=== PATIENT | female | born 1965 | race Caucasian/White ===

== ENCOUNTER 2016-09-05 20:59 | Emergency (ER) | payer BC ==
[2016-09-05 20:43] LABS: BASOPHILS 0.4 %; BASOPHILS ABSOLUTE 0.03 10/3/uL (0.0-0.16); EOSINOPHILS 1.5 %; HEMATOCRIT 40.9 % (36.0-48.0); HEMOGLOBIN 13.8 g/dL (12.0-16.0); LYMPHOCYTES 35.7 %; LYMPHOCYTES ABSOLUTE 2.44 10/3/uL (0.67-4.30); MEAN CORPUS HGB CONC 33.7 g/dL (32.0-36.0); MEAN CORPUSCULAR HEMOGLOB 27.3 pg (26.0-34.0); MEAN PLATELET VOLUME 10.7 fL (9.2-13.0); MONOCYTES 8.5 %; MONOCYTES ABSOLUTE 0.58 10/3/uL (0.21-1.20); NEUTROPHILS 53.9 %; NEUTROPHILS ABSOLUTE 3.69 10/3/uL (2.02-8.40); PLATELET COUNT 191 10/3/uL (150-400); RBC DISTRIBUTION WIDTH 13.4 % (12.0-16.0); RED CELL COUNT 5.05 10/6/uL (4.0-5.6); WHITE BLOOD CELLS 6.8 10/3/uL (4.5-10.5)
[2016-09-05 20:44] LABS: MANUAL DIFF NO %
[2016-09-05 20:50] LABS: PARTIAL THROMBO TIME 25.8 SEC (22.5-37.2); PROTIME (NOT ORD) 13.4 SEC (12.0-14.5)
[2016-09-05 20:59] LABS: BUN (BLOOD UREA NITROGEN) 10 MG/DL (6-23); CHEST PAIN PROFILE TAT 0 Hrs 20 Mins; CHLORIDE, SERUM 106 MMOL/L (96-112); CO2 (CARBON DIOXIDE) 31 MMOL/L (24-34); CREATININE 0.74 MG/DL (0.55-1.02); GFR AFRICAN AMERICAN 109 ML/MIN (>=60); GFR NON AFRICAN AMERICAN 94 ML/MIN (>=60); GLUCOSE, SERUM 77 MG/DL (60-99); SODIUM, SERUM 142 MMOL/L (135-148); TROPONIN I <0.02 NG/ML (<0.05)
[~2016-09-05 20:59] MED LIST: AMB10 PO; AMB5 PO; ATEN25 PO; BYSTOLIC2.5 MG PO; BYSTOLIC5 MG PO; CALTRAT600 PO; FOLIC ACID800 MCG PO; GLUCOPHXR PO; HARD NAILS SL; HYCET ELIXIR; LORTAB 5 PO; MAGONATE PO; MULTIVIT/MIN PO; MULTIVITAMIN PO; NORCO1 TA1 PO; OS500+D PO; PEPCID COMPLETE; PHENERGAN; REFRESH OPH; TOBRAMYCIN0.3 % OPH; ULTRAM50 PO; VITAMIN B GUMMIES PO; VITAMIN B-121000 MC1 SL; VITAMIN C GUMMIES PO; VITAMIN C1000 MG PO; VITAMIN D1000 UNI1 PO; VITAMIN D3 GUMMIES PO; VITC500 PO; X5 PO; [UNRECOGNIZED DRUG - OTHER] PO
== END 2016-09-05 23:01 | disposition home or self-care (01) ==
LOC: ER 20:59
PROVIDERS: Nurse Practitioner Acute Care
DX: R55 Syncope and collapse (principal); M54.2 Cervicalgia; R51 Headache; I10 Essential (primary) hypertension; J45.909 Unspecified asthma, uncomplicated; K21.9 Gastro-esophageal reflux disease without esophagitis; F41.9 Anxiety disorder, unspecified; E11.9 Type 2 diabetes mellitus without complications; Z88.1 Allergy status to other antibiotic agents; Z88.8 Allergy status to other drugs, medicaments and biological substances; Z79.899 Other long term (current) drug therapy
CPT/HCPCS: 70450; 71010; 72125; 80048; 82962; 83735; 84484; 85025; 85610; 85730; 93005; 96374; 96375; 99285; J1885

== ENCOUNTER 2016-12-22 14:43 | Inpatient (IN) | payer BC ==
--- NOTE | ~2016-12-22 | HP ---
History And Physical [place] [address] [facility] [place]. [address] NAME: LIBIA STACY : 63 STATUS : ADM IN [facility]#: [id number] AGE: 51 ADM/REG DATE : 12/22/16 MR#: [id number] REPORT SERV DATE: 12/23/16 DICTATED BY: LAURA MEDINA DATE: 12/22/16 REPORT STATUS : Draft TRANSCRIBED BY: MODL DATE: 12/22/16 DATE OF ADMISSION: 12/22/2016 Primary care doctor is Dr. Flaherty, the patient apparently saw nurse practitioner today. REASON FOR ADMISSION: Right mastoiditis. HISTORY OF PRESENT ILLNESS: This is a 50-year-old female. She suffers from obesity, apparently was morbidly obese at one time, then she got a laparoscopic Avtar-en-Y gastric bypass per Dr. Baker in 2014 for which much of her hypertension, diabetes, and hyperlipidemia improved as well as her GERD. She has a known history as well of syncope possibly related to tachyarrhythmia, history of KEMAR on CPAP, generalized anxiety disorder, known surgical history of craniotomy due to Chiari malformation with subsequent C1- C7 laminectomy, recent C6-7 fusion about a month or two ago, surgical history of microdiskectomy L4-L5, right carpal tunnel release, open cholecystectomy. The patient has had a significant amount of stress recently with her daughter who apparently works at [employer] [facility] [employer] as a monitor and storage bin tender in the emergency department succumbed to septic shock with shock liver with a pneumococcal pneumonia, is in the ICU in [place] apparently at [facility]. The patient states she has had a lot of stress as a result, then back on Sunday she started having right ear tragal pain. She went to the emergency department two days ago in [facility] where she had been diagnosed with right otitis media in the emergency department. There was no blood work done apparently at that time. As a result, the patient had a Rocephin intramuscular injection and amoxicillin with morphine and Percocet with improvement in pain but then today the fullness and numbness worsened. She went to see Dr. Flaherty and saw the nurse practitioner. Thankfully, a CT internal auditory canal was done that showed a right mastoid effusion about 50% occupation with fluid and consistent with likely right mastoiditis. Radiologist called nurse practitioner, who then called me. The patient states she has had decreased hearing loss. No fevers, chills, night sweats in the last two days nor nausea vomiting, diarrhea, chest pain, chest pressure, or shortness of breath. The patient is anxious. PAST MEDICAL HISTORY: See above. PAST SURGICAL HISTORY: See above. ALLERGIES: DRUG INTOLERANCE TO KEFLEX WITH INTRACTABLE VOMITING. FAMILY HISTORY: Hypertension in at least one parent. SOCIAL HISTORY: Does not drink, do drugs, or smoke. HOME MEDICATIONS: See MAR. We will continue what is relevant. I do not have MAR in front of me. Apparently, the patient takes Ambien 5, Bystolic 2.5 at bedtime and tramadol p.r.n. History And Physical [address] [address] NAME: LIBIA STACY : 63 STATUS : ADM IN PAT#: [id number] AGE: 51 ADM/REG DATE : 12/22/16 MR#: [id number] REPORT SERV DATE: 12/23/16 DICTATED BY: LAURA MEDINA DATE: 12/22/16 REPORT STATUS : Draft TRANSCRIBED BY: MARIA TERESA DATE: 12/22/16 REVIEW OF SYSTEMS: Done, see HPI. Otherwise, negative, 10-point review done. The patient denies any new neck stiffness or headache. OBJECTIVE: VITAL SIGNS: Vitals are pending, will be called if they are unstable. GENERAL: Guarded. HEENT: PERRLA. Also I did in the right, she had no tragal pain to palpation. She did have some mild erythema in the tympanic membrane on the right. Oropharynx, she had some capillary dilation in the posterior pharynx, pharyngeal wall that I could visualize. CARDIOVASCULAR: Regular rate and rhythm. No murmur. No carotid bruits. RESPIRATORY: Clear to auscultation bilaterally. No wheezes. No crackles. ABDOMEN: Nontender, nondistended. Positive bowel sounds. EXTREMITIES: No edema. SKIN: No ecchymosis. NEURO: She is GCS 15. A and O 4 out of 4. She has decreased hearing in the right ear to my finger rub and snapping of finger right compared to left. This is new. PSYCH: Anxious. LABS: These are all going to be pending. CT, see above. I am going to get an MRI to rule out for any intracranial abscess or communication to dural space. ASSESSMENT AND PLAN: 1. Right mastoiditis, need to rule out MRSA and Pseudomonas as these are common causes with necrosis. 2. History of gastric bypass with improved hypertension, diabetes, hyperlipidemia improvement. 3. Recent history of sore throat after unclear facial tooth bridge two weeks ago. 4. Decreased right hearing compared to the left. PLAN: We will go ahead and admit this patient. Panculture, IV vanc, IV Levaquin cover Pseudomonas, cover MRSA. We will need Ear Nose and Throat evaluation as patient may have a cholesteatoma which may need resection. We will get an MRI to rule out any other soft tissue involvement including the cholesteatoma. We will defer to ENT if they would like to pursue any surgery. In the interim, we will make n.p.o. except medications and ice as an ice chips D5 LR. We will hold off on her antihypertensives until I have her current vitals. We will just place on p.r.n. hydralazine. I would also like to go ahead and get records from her [place] ER visit where apparently she had outpatient treatment failure to amoxicillin and intramuscular Rocephin. Cover her glycemic needs with Accu-Chek. She was formerly a diabetic before her bypass. See rest of my orders. All questions were answered. It took well over 60 minutes to do. Reference [employer] and [employer]. WST/MODL History And Physical [address] [address] NAME: LIBIA STACY : 63 STATUS : ADM IN [facility]#: [id number] AGE: 51 ADM/REG DATE : 12/22/16 MR#: [id number] REPORT SERV DATE: 12/23/16 DICTATED BY: LAURA MEDINA DATE: 12/22/16 REPORT STATUS : Draft TRANSCRIBED BY: MODL DATE: 12/22/16 Laura Medina DO / [id number] CC: DO Maninder Aleman MD
--- NOTE | ~2016-12-22 | DS ---
Discharge Summary [facility] [address] [place]. [address] NAME: LIBIA STACY : 63 STATUS : DIS IN PAT#: [id number] AGE: 51 ADM/REG DATE : 12/22/16 MR#: [id number] REPORT SERV DATE: 12/24/16 DICTATED BY: LAURA MEDINA DATE: 12/23/16 REPORT STATUS : Draft TRANSCRIBED BY: MODL DATE: 12/23/16 ADMISSION DATE: 12/22/2016 DISCHARGE DATE: 12/23/2016 HOSPITAL COURSE: A 51-year-old female, who suffers from obesity, was morbidly obese, one time required laparoscopic Avtar-en-Y gastric bypass by Dr. Junior 2014 from which much of her hypertension, diabetes, hyperlipidemia improved as well as her GERD, known history of syncope, possibly tachyarrhythmia, history of KEMAR on CPAP in the past, MARTY, surgical history of craniotomy due to Chiari malformations subsequent C1 and C7 laminectomy, recent C6-C7 fusion month or two ago, surgical history of microdiskectomy L4-L5, right carpal tunnel release, open cholecystectomy history. The patient came in with significant amount of stress. 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 The patient by MRI did not show any intracranial abscess or any other soft tissue abnormality. ENT thought the patient just had a right otitis media which I also confirmed by my own otoscope, as a result will just be on 13 additional days of Augmentin. We discharged home today. 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 DISCHARGE MEDICATIONS: Will include Augmentin 875, clavulanic acid, as well p.o. b.i.d. for 13 days to complete 14 total day therapy; Florastor one capsule p.o. b.i.d.; zolpidem at home; nebivolol at home; Erwinna 5/325 p.o. b.i.d. p.r.n. pain. CONSULTS: ENT. PROCEDURES: None. DISCHARGE DIAGNOSES: 1. Right otitis media, which is suppurative with right mastoid air cells being fluid- filled likely not at least necrotic mastoiditis, right otitis media. 2. Hypertension, decreased hearing in right ear. FOLLOWUP: Follow up with Dr. Juarez in one to two weeks. PCP in two weeks. Discharge Summary [address] [place] [address] NAME: LIBIA STACY : 63 STATUS : DIS IN PAT#: [id number] AGE: 51 ADM/REG DATE : 12/22/16 MR#: [id number] REPORT SERV DATE: 12/24/16 DICTATED BY: LAURA MEDINA DATE: 12/23/16 REPORT STATUS : Draft TRANSCRIBED BY: MARIA TERESA DATE: 12/23/16 All questions were answered, it took over 30 minutes to do. DICTATED BY: Laura Medina DO WST/MARIA TERESA Laura Medina DO / [id number] CC: DO Maninder Aleman MD
[2016-12-22] MEDS ORDERED: AMOXIL500 MG PO (17:37)
[2016-12-22] MEDS ORDERED: BYSTOLIC2.5 MG PO (17:40)
[2016-12-22] MEDS ORDERED: AMB10 PO (17:40)
[2016-12-22] MEDS ORDERED: PCET PO (17:42)
[2016-12-22] MEDS ORDERED: ULTRAM50 PO (17:44)
[2016-12-22 18:20] LABS: BASOPHILS 0.5 %; BASOPHILS ABSOLUTE 0.03 10/3/uL (0.0-0.16); EOSINOPHILS 1.1 %; EOSINOPHILS ABSOLUTE 0.07 10/3/uL (0.0-0.53); HEMATOCRIT 37.9 % (36.0-48.0); HEMOGLOBIN 12.4 g/dL (12.0-16.0); IMMATURE GRANULOCYTES 0.2 %; IMMATURE GRANULOCYTES ABSOLUTE 0.01 10/3/uL (0.0-0.11); LYMPHOCYTES 30.8 %; LYMPHOCYTES ABSOLUTE 1.91 10/3/uL (0.67-4.30); MANUAL DIFF NO %; MEAN CORPUS HGB CONC 32.7 g/dL (32.0-36.0); MEAN CORPUSCULAR HEMOGLOB 26.8 pg (26.0-34.0); MEAN CORPUSCULAR VOLUME 81.9 fL (80-100); MEAN PLATELET VOLUME 11.1 fL (9.2-13.0); MONOCYTES 5.6 %; MONOCYTES ABSOLUTE 0.35 10/3/uL (0.21-1.20); NEUTROPHILS 61.8 %; NEUTROPHILS ABSOLUTE 3.83 10/3/uL (2.02-8.40); PLATELET COUNT 195 10/3/uL (150-400); RBC DISTRIBUTION WIDTH 13.1 % (12.0-16.0); RED CELL COUNT 4.63 10/6/uL (4.0-5.6); WHITE BLOOD CELLS 6.2 10/3/uL (4.5-10.5)
[2016-12-22 18:40] LABS: B NATRIURETIC PEPTIDE (BNP) 62.5 PG/ML (< 100.0)
[2016-12-22 18:47] LABS: ALBUMIN 3.6 G/DL (3.5-5.0); ALKALINE PHOSPHATASE 115 U/L (45-117); BUN (BLOOD UREA NITROGEN) 11 MG/DL (6-23); CALCIUM, SERUM 9.1 MG/DL (8.5-10.4); CHLORIDE, SERUM 108 MMOL/L (96-112); CO2 (CARBON DIOXIDE) 30 MMOL/L (24-34); CREATININE 0.62 MG/DL (0.55-1.02); GFR AFRICAN AMERICAN 121 ML/MIN (>=60); GFR NON AFRICAN AMERICAN 104 ML/MIN (>=60); GLOBULIN 3.7 G/DL (2.5-4.1); GLUCOSE, SERUM 96 MG/DL (60-99); PHOSPHORUS, SERUM 2.9 MG/DL (2.5-4.5); POTASSIUM, SERUM 3.7 MMOL/L (3.5-5.3); SGOT(AST) 20 U/L (5-40); SGPT(ALT) 21 U/L (5-65); SODIUM, SERUM 145 MMOL/L (135-148); TOTAL BILIRUBIN 0.4 MG/DL (0-1.2); TOTAL PROTEIN 7.3 G/DL (6.0-8.5)
[2016-12-22 20:02] LABS: PROCALCITONIN < 0.05 ng/mL (<0.5)
[2016-12-22 20:42] LABS: ASCORBIC ACID (UR NOT ORDER) 40 (NEG); BILIRUBIN, URINE NEGATIVE (NEG); KETONE, URINE TRACE MG/DL (NEG); LEUKOCYTE ESTERASE(NOT OR NEG (NEG); WBC (NOT ORDERED) (RFLEX) 1 (0-5)
[2016-12-23 05:01] LABS: BASOPHILS 0.4 %; BASOPHILS ABSOLUTE 0.02 10/3/uL (0.0-0.16); EOSINOPHILS 2.2 %; EOSINOPHILS ABSOLUTE 0.12 10/3/uL (0.0-0.53); IMMATURE GRANULOCYTES 0.2 %; IMMATURE GRANULOCYTES ABSOLUTE 0.01 10/3/uL (0.0-0.11); LYMPHOCYTES 37.9 %; LYMPHOCYTES ABSOLUTE 2.11 10/3/uL (0.67-4.30); MEAN CORPUS HGB CONC 33.2 g/dL (32.0-36.0); MEAN CORPUSCULAR HEMOGLOB 26.9 pg (26.0-34.0); MEAN CORPUSCULAR VOLUME 80.9 fL (80-100); MEAN PLATELET VOLUME 10.6 fL (9.2-13.0); MONOCYTES 7.7 %; MONOCYTES ABSOLUTE 0.43 10/3/uL (0.21-1.20); NEUTROPHILS 51.6 %; NEUTROPHILS ABSOLUTE 2.88 10/3/uL (2.02-8.40); PLATELET COUNT 166 10/3/uL (150-400); RBC DISTRIBUTION WIDTH 12.9 % (12.0-16.0); RED CELL COUNT 4.09 10/6/uL (4.0-5.6); WHITE BLOOD CELLS 5.6 10/3/uL (4.5-10.5)
[2016-12-23 05:05] LABS: HEMATOCRIT 33.1 % (36.0-48.0); MANUAL DIFF NO %
[2016-12-23 05:11] LABS: BUN (BLOOD UREA NITROGEN) 11 MG/DL (6-23); CALCIUM, SERUM 8.7 MG/DL (8.5-10.4); CHLORIDE, SERUM 109 MMOL/L (96-112); CO2 (CARBON DIOXIDE) 30 MMOL/L (24-34); CREATININE 0.65 MG/DL (0.55-1.02); GFR AFRICAN AMERICAN 118 ML/MIN (>=60); GFR NON AFRICAN AMERICAN 102 ML/MIN (>=60); GLUCOSE, SERUM 102 MG/DL (60-99); PHOSPHORUS, SERUM 2.9 MG/DL (2.5-4.5); POTASSIUM, SERUM 3.6 MMOL/L (3.5-5.3); SODIUM, SERUM 142 MMOL/L (135-148)
[2016-12-23 11:25] LABS: GLYCOHEMOGLOBIN (HbA1c) 5.8 % (4.7-6.1)
[2016-12-23] MEDS ORDERED: AUG875 PO (16:24)
[2016-12-23] MEDS ORDERED: NORCO1 TA1 PO (16:24)
[2016-12-23] MEDS ORDERED: FLORASTOR250 MG PO (16:24)
== END 2016-12-23 17:07 | disposition home or self-care (01) | DRG 153 ==
LOC: 5SO 14:43
PROVIDERS: Internal Medicine
DX: H66.001 Acute suppurative otitis media without spontaneous rupture of ear drum, right ear (principal); E66.01 Morbid (severe) obesity due to excess calories; I10 Essential (primary) hypertension; Z98.84 Bariatric surgery status; E11.9 Type 2 diabetes mellitus without complications; E78.5 Hyperlipidemia, unspecified; K21.9 Gastro-esophageal reflux disease without esophagitis; G47.33 Obstructive sleep apnea (adult) (pediatric); F41.9 Anxiety disorder, unspecified; Z90.49 Acquired absence of other specified parts of digestive tract; Z98.890 Other specified postprocedural states; Z88.1 Allergy status to other antibiotic agents; Z82.49 Family history of ischemic heart disease and other diseases of the circulatory system
CPT/HCPCS: 70480; 70551; 80048; 80053; 81001; 82962; 83036; 83605; 83735; 83880; 84100; 84145; 84443; 85025; 87040; 87449; 87641; 93005; A9270-GY; J0360; J1170; J1956; J2550; J3370